=== PATIENT | female | born 1950 | race Caucasian/White ===

== ENCOUNTER 2020-01-06 10:06 | Outpatient (CLI) | payer MEDICARE, OTHER, SELFPAY ==
--- NOTE | 2020-01-06 10:20 | XR_ITS ---
WS: [id number] RIGHT FOOT: 2 VIEW(S) TECHNIQUE: AP and lateral. HISTORY: FOOT PAIN, RIGHT COMPARISON: None available. Acute nondisplaced fracture through the mid diaphysis third proximal phalanx. No additional fractures are evident. Normal tarsal/metatarsal alignment. Mild osteopenia. Mild hallux valgus. Enthesopathy at the Achilles tendon. XR/XR foot RT 2V 90086 IMPRESSION: Nondisplaced transverse fracture mid diaphysis proximal third phalanx.
== END 2020-01-06 10:07 | disposition home or self-care (01) ==
LOC: RADWPI 10:11
PROVIDERS: Family Provider Family Medicine; PCP Family Medicine; Visit Provider Family Medicine
DX: S92.911A Unspecified fracture of right toe(s), initial encounter for closed fracture; X58.XXXA Exposure to other specified factors, initial encounter
CPT/HCPCS: 73620

== ENCOUNTER 2021-12-24 09:15 | Emergency (ER) | payer MEDICARE, SELFPAY ==
[2021-12-24] VITALS (15 sets, daily range): BP systolic 91–148; BP diastolic 49–96; PULSE 94–112; RESP 16–20; TEMP 36.4; O2SAT 98–99; BMI 30.2
--- NOTE | 2021-12-24 09:16 | CT_ITS ---
WS: [id number] Exam: CT head wo con* [id number] Date/Time of Exam: 12/24/2021 9:20 AM Reason For Exam: UNRESPONSIVE/ STROKE LIKE SYMPTOMS DLP: 994.[address] scans at [facility] use at least one of these dose optimization techniques: automated e xposure control; mA and/or kV adjustment per patient size (includes targeted exams where dose is matc hed to clinical indication); or iterative reconstruction. Large intraparenchymal hemorrhage in the posterior fossa midline eccentric to the right. There is ass ociated surrounding edema. There is subarachnoid blood noted. Also some subdural hemorrhage seen in t he right posterior fossa. There is significant mass effect in the posterior fossa and brainstem. The lateral ventricles are unremarkable. No other sign of hemorrhage. The skull is intact. The mastoids a re clear. Mild mucosal thickening in the ethmoid sinuses. CT/CT head wo con* [id number] IMPRESSION: 1. Large intraparenchymal hemorrhage in the posterior fossa midline eccentric t o the right. There is some associated surrounding edema. This may represent a l arge hemorrhagic stroke. A mass with acute hemorrhage could also have similar a ppearance. There is significant subarachnoid blood in the posterior fossa as we ll as subdural hemorrhage in the right posterior fossa. Significant mass effect upon the brainstem. Results discussed by phone with Dr. Jarvis, the attending ER physician at 9:4 0 AM 12/24/2021
--- NOTE | 2021-12-24 09:31 | ECG_ITS ---
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 Measurements Intervals [place] Rate: 105 P: 72 IL: 156 QRS: 66 QRSD: 94 T: 71 QT: 356 QTc: 472 Interpretive Statements SINUS TACHYCARDIA WITH OCCASIONAL VENTRICULAR PREMATURE COMPLEXES MODERATE VOLTAGE CRITERIA FOR LVH, CONSIDER NORMAL VARIANT [MEETS CRITERIA IN ONE OF: R(aVL), S(V1), R(V5), R(V5/V6)+S(V1)] ABNORMAL RHYTHM ECG No previous ECG available for comparison Electronically Signed On 12-24-2021 13:11:32 CDT by Luciano Raymond M.D. [email or web address] Soundpaulding county hospital.Constant Therapy/store/[id number] f
--- NOTE | 2021-12-24 09:32 | PC.NURSE ---
pt is on continuous spo2, nibp and cm.
[2021-12-24 09:33] LABS: Basophils # 0.1 10^3/uL (0.0-0.1); Basophils % 0.6 %; Eosinophils % 0.2 %; Hematocrit 51.6 % (37.0-47.0); Hemoglobin 16.5 g/dL (11.5-15.3); Lymphocytes # 2.8 10^3/uL (0.8-4.8); Lymphocytes % 15.1 %; Mean Corpuscular Hemoglobin 30.2 pg (28.0-34.0); Mean Corpuscular Volume 94.3 fl (81-99); Mean Platelet Volume 11.5 fL (7.4-10.4); Monocytes # 0.7 10^3/uL (0.2-0.9); Monocytes % 3.9 %; Neutrophils # 14.98 10^3/uL (1.8-7.7); Neutrophils % 79.5 %; Nucleated Red Blood Cells % 0 %; Platelet Count 266 10^3/cmm (130-400); Red Blood Count 5.47 10^6/uL (4.1-5.3); White Blood Count 18.8 10^3/uL (4.0-10.0)
[2021-12-24] MEDS: nicardipine 20 MG/200 ML PREMIX 50 MG IV (09:35)
[2021-12-24 09:36] LABS: Glucose Point of Care 226 mg/dL (70-110)
[2021-12-24 09:45] LABS: INR 0.95 (0.8-1.2)
[2021-12-24 09:46] LABS: Partial Thromboplastin Time 25.1 SECONDS (23.9-36.7)
[2021-12-24 09:57] LABS: Alanine Aminotransferase 11 U/L (0-33); Albumin Level 4.1 g/dL (3.5-5.2); Alkaline Phosphatase 72 IU/L (35-105); Anion Gap 13.5 (5-19); Aspartate Amino Transferase 13 U/L (0-32); Blood Urea Nitrogen 11 mg/dL (8-23); Calcium 8.7 mg/dL (8.5-10.5); Carbon Dioxide 27 mmol/L (22-29); Chloride 103 mmol/L (98-107); Globulin 3.2 g/dL (1.3-4.6); Glucose 245 mg/dL (65-115); Osmolality Calculated 298 mOsm/kg (285-295); Potassium 3.5 mmol/L (3.5-5.1); Sodium 140 mmol/L (136-145); Total Bilirubin 0.3 mg/dL (0.15-1.2); Total Protein 7.3 g/dL (6.6-8.7)
[2021-12-24] MEDS: propofol 1,000 MG/100 ML INJ 6 MG IV (09:57)
--- NOTE | 2021-12-24 10:09 | ECG_ITS ---
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 Measurements Intervals [place] Rate: 105 P: 72 [place]: 156 QRS: 66 QRSD: 94 T: 71 QT: 356 QTc: 472 Interpretive Statements SINUS TACHYCARDIA WITH OCCASIONAL VENTRICULAR PREMATURE COMPLEXES MODERATE VOLTAGE CRITERIA FOR LVH, CONSIDER NORMAL VARIANT [MEETS CRITERIA IN ONE OF: R(aVL), S(V1), R(V5), R(V5/V6)+S(V1)] ABNORMAL RHYTHM ECG No previous ECG available for comparison Electronically Signed On 12-24-2021 13:11:24 CDT by Luciano Raymond M.D. [email or web address] LLCmercy health st. [facility] center.Vilynx/store/NU/[id number].pd f
[2021-12-24 10:10] LABS: Add Urine Microscopic? YES; Bilirubin Urine Neg (Negative); Blood Urine Neg (Negative); Glucose Urine UA 2+ (Normal); Ketones Urine Negative (Negative); Leukocyte Esterase Urine Negative (Negative); Nitrate Urine Negative (Negative); Protein Urine 1+ (Negative); Urine Appearance Clear (CLEAR); Urine Color Yellow (Yellow); Urobilinogen Urine Norm (Negative); pH Urine 5 (5-7)
--- NOTE | 2021-12-24 10:12 | PC.NURSE ---
WHILE AT BEDSIDE PROPOFOL INCREASED TO 30MCG/KG/MIN PER DR. BISMARK THOMAS.
[2021-12-24 10:16] LABS: Amphetamines Screen Urine Negative (Negative); Barbiturates Screen Urine Negative (Negative); Benzodiazepines Screen Urine Negative (Negative); Cocaine Screen Urine Negative (Negative); Opiate Screen Urine Negative (Negative); PCP Screen Urine Negative (Negative); THC Screen Urine Negative (Negative)
[2021-12-24 10:18] LABS: WBC Urine 0-4 /hpf (0-5)
[2021-12-24 10:19] LABS: Add Urine Culture? No; Bacteria Urine TRACE /hpf; Hyaline Casts Urine 0-4 /lpf; Mucus Urine TRACE /hpf; Squamous Epithelial Cell Urine 0-4 /hpf (0-5)
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
[2021-12-24] MEDS: mannitol 12.5 gm/50 mL (25%) SDV IV (10:52)
--- NOTE | 2021-12-24 10:53 | PC.NURSE ---
REPORT GIVEN TO [facility] MOLD [facility]TER WITH [facility] [employer].
== END 2021-12-24 11:03 ==
PROVIDERS: Emergency Provider Family Medicine; PCP Family Medicine
DX: R41.82 Altered mental status, unspecified (principal); R51.9 Headache, unspecified; R11.2 Nausea with vomiting, unspecified; I10 Essential (primary) hypertension; F17.210 Nicotine dependence, cigarettes, uncomplicated
CPT/HCPCS: 36416; 51702; 70450; 80053; 80306; 81001; 82962; 85025; 85610; 85730; 93005; 94002; 94799; 96365; 96367; 96375; 99291; J1953; J2150; J2704